=== PATIENT | female | born 1990 | race African-American/Black ===

== ENCOUNTER 2021-01-24 08:20 | Inpatient (IN) | payer OTHER ==
[~2021-01-24] VITALS: Ht 170.2 cm; Wt 166.9 kg
[2021-01-24] MEDS ORDERED: ALBUTEROL (0.083%) 2.5MG/3ML NEB HHN STA (08:35)
[2021-01-24] MEDS ORDERED: METHYLPREDNISOLONE SOD SUCC 125 MG/2 ML VIAL IV STA (08:35)
[2021-01-24 08:56] LABS: BASOPHILS % 0.3 % (0.0-2.0); EOSINOPHILS % 2.3 % (0.0-5.0); HEMATOCRIT. 37.1 % (36.0-48.0); MEAN CORPUSCULAR VOLUME 83.4 fL (81.0-99.0); MEAN PLATELET VOLUME 7.6 fl (7.4-10.4); MONOCYTES % 6.7 % (2.0-8.0); NEUTROPHILS % 57.7 % (40.0-76.0); PLATELET 255 x1000/uL (130-400); RED BLOOD CELL COUNT 4.45 mill/uL (4.2-5.4); RED CELL DISTRIBUTION WIDTH 14.9 % (11.6-14.6)
[2021-01-24] MEDS ORDERED: IPRATROPIUM BROMIDE (0.02%) 0.5MG/2.5ML NEB HHN ONE (10:00)
[2021-01-24] MEDS ORDERED: IPRATROPIUM BROMIDE (0.02%) 0.5MG/2.5ML NEB ONE (10:09)
[2021-01-24 10:20] LABS: CHLORIDE 109 mEq/L (98-107)
[2021-01-24] MEDS ORDERED: IOHEXOL-350 100 ML BOTTLE ONE (12:19)
[2021-01-24] MEDS ORDERED: MORPHINE SULFATE 4 MG/ML CPJ (NOT FOR IM USE) IV STA (12:36)
[2021-01-24] MEDS ORDERED: ONDANSETRON HCL 4MG/2ML INJ IV STA (12:36)
[2021-01-24] MEDS ORDERED: HEPARIN 5000 UNITS/ML VIAL IV ONE (12:45)
[2021-01-24] MEDS ORDERED: HEPARIN 25,000 UNITS PREMIX 250 ML IV SCH (12:45)
[2021-01-24 13:41] LABS: PROTHROMBIN TIME 10.9 sec (9.6-11.0)
[2021-01-24] MEDS ORDERED: HEPARIN 25,000 UNITS PREMIX 250 ML IV PRN (14:30)
[2021-01-24] MEDS ORDERED: HEPARIN BOLUS PRN aPTT 37-44 IV (15:00)
[2021-01-24] MEDS ORDERED: HEPARIN BOLUS PRN aPTT <36 IV (15:00)
[2021-01-24] MEDS ORDERED: HEPARIN 25,000 UNITS in DEXT 5% WATER 250 ML IV PRN ×2 (15:00)
[2021-01-24] MEDS ORDERED: IPRATROPIUM/ALBUTEROL 0.5-3(2.5)MG/3ML NEB HHN PRN (17:30)
[2021-01-24] MEDS ORDERED: MORPHINE SULFATE 2 MG/ML CPJ (NOT FOR IM USE) IV PRN (18:00)
[2021-01-24] MEDS ORDERED: DOCUSATE SODIUM 100MG CAPSULE PO PRN (18:45)
[2021-01-24] MEDS ORDERED: ACETAMINOPHEN 325MG TABLET PO PRN (18:45)
[2021-01-24] MEDS ORDERED: HYDROCODONE/ACETAMINOPHEN 5/325MG TABLET PO PRN (18:45)
[2021-01-24] MEDS ORDERED: MAGNESIUM/ALUMINUM HYDROXIDE/SIMETHICONE 30ML UDC PO PRN (18:45)
[2021-01-24] MEDS ORDERED: ONDANSETRON HCL 4MG/2ML INJ IV PRN (18:45)
[2021-01-24] MEDS ORDERED: CLONIDINE 0.1MG TABLET PO PRN (18:45)
[2021-01-25] VITALS (11 sets, daily range): BP systolic 97–140; BP diastolic 51–99
[2021-01-25 06:24] LABS: BASOPHILS % 0.1 % (0.0-2.0); EOSINOPHILS % 0.1 % (0.0-5.0); HEMATOCRIT. 35.9 % (36.0-48.0); HEMOGLOBIN. 11.8 g/dL (12.0-16.0); LYMPHOCYTES % 19.9 % (20.0-50.0); MEAN CORPUSCULAR HEMOGLOBIN 27.2 pg (28.0-32.0); MEAN CORPUSCULAR VOLUME 82.9 fL (81.0-99.0); MONOCYTES % 7.7 % (2.0-8.0); NEUTROPHILS % 72.2 % (40.0-76.0); PLATELET 251 x1000/uL (130-400); RED BLOOD CELL COUNT 4.33 mill/uL (4.2-5.4); RED CELL DISTRIBUTION WIDTH 14.9 % (11.6-14.6)
[2021-01-25 06:59] LABS: CHLORIDE 106 mEq/L (98-107)
[2021-01-25 07:06] LABS: PHOSPHORUS 3.4 mg/dL (2.5-4.9)
[2021-01-25] MEDS: APIXABAN 5 MG TABLET PO SCH ×2 (10:41→16:00)
[2021-01-26 01:56] VITALS: BP 124/85
[2021-01-26 03:56] VITALS: BP 132/80
[2021-01-26 05:34] LABS: *AMPHETAMINES SCREEN URINE NEGATIVE (NEGATIVE); *BARBITURATES SCREEN URINE NEGATIVE (NEGATIVE); *COCAINE SCREEN URINE NEGATIVE (NEGATIVE)
[2021-01-26 05:35] LABS: *BENZODIAZEPINES SCREEN URINE NEGATIVE (NEGATIVE); PHENCYCLIDINE URINE SCREEN NEGATIVE (NEGATIVE)
[2021-01-26 05:36] LABS: METHADONE URINE SCREEN NEGATIVE (NEGATIVE)
[2021-01-26 05:50] LABS: CANNABINOID URINE SCREEN PRESUMTIVE POSITIVE (NEGATIVE); OPIATES URINE SCREEN PRESUMTIVE POSITIVE (NEGATIVE)
[2021-01-26 07:52] LABS: CHLORIDE 106 mEq/L (98-107)
[2021-01-26 07:58] VITALS: BP 116/58
[2021-01-26 08:02] LABS: BASOPHILS % 0.5 % (0.0-2.0); EOSINOPHILS % 2.7 % (0.0-5.0); HEMATOCRIT. 36.8 % (36.0-48.0); HEMOGLOBIN. 11.9 g/dL (12.0-16.0); LYMPHOCYTES % 51.4 % (20.0-50.0); MEAN CORPUSCULAR HEMOGLOBIN 27.4 pg (28.0-32.0); MEAN CORPUSCULAR VOLUME 84.5 fL (81.0-99.0); MEAN PLATELET VOLUME 7.9 fl (7.4-10.4); MONOCYTES % 5.1 % (2.0-8.0); NEUTROPHILS % 40.3 % (40.0-76.0); PLATELET 257 x1000/uL (130-400); RED BLOOD CELL COUNT 4.35 mill/uL (4.2-5.4)
[2021-01-26] MEDS: APIXABAN 5 MG TABLET PO SCH ×2 (08:44→15:29)
[2021-01-26 11:56] VITALS: BP 138/77
[2021-02-01] MEDS ORDERED: APIXABAN 5 MG TABLET PO SCH (09:00)
== END 2021-01-26 15:35 | disposition home or self-care (01) | DRG 134 ==
LOC: ER 08:31 → 3WST 13:43 → ENRESERV 01-25 01:24 → EDBEDREQSVC 01-25 01:51 → EDBEDREQDT 01-25 01:51 → EDBEDREQTM 01-25 01:51
PROVIDERS: ADMIT Internal Medicine; ATTEND Internal Medicine
DX: I26.99 Other pulmonary embolism without acute cor pulmonale (principal); J96.01 Acute respiratory failure with hypoxia; E44.1 Mild protein-calorie malnutrition; E66.01 Morbid (severe) obesity due to excess calories; J45.909 Unspecified asthma, uncomplicated; I51.7 Cardiomegaly; Z86.711 Personal history of pulmonary embolism; Z68.43 Body mass index [BMI] 50.0-59.9, adult; Z71.3 Dietary counseling and surveillance
CPT/HCPCS: 36415; 71045; 71275; 80048; 80053; 80305; 83735; 83880; 84100; 84443; 84484; 85025; 85379; 93005; 93306; 93970; 99291; J1644; J2270; J2405; J2930; J7060; Q9967